=== PATIENT | male | born 1980 | race Caucasian/White ===

== ENCOUNTER 2017-04-30 07:03 | Emergency (ER) | payer OTHER ==
[~2017-04-30] VITALS: Ht 167.6 cm; Wt 77.1 kg
--- NOTE | 2017-04-30 07:24 | PHYS DOC ---
Adult General Chief Complaint Chief Complaint: ABDOMINAL PAIN HPI HPI Patient is a 36 year old with no significant medical history who presents today complaining of moderate left lower quadrant abdominal pain with nausea and vomiting that began today. Patient denies any fever. Denies any diarrhea. Denies any constipation. He states his last bowel movement was this morning and normal. Patient denies any hematuria urgency frequency dysuria. Review of Systems Review of Systems Constitutional: Denies fever or chills [] Eyes: Denies change in visual acuity, redness, or eye pain [] HENT: Denies nasal congestion or sore throat [] Respiratory: Denies cough or shortness of breath [] Cardiovascular: No additional information not addressed in HPI [] GI: Left lower quadrant abdominal pain with nausea and vomiting. Denies bloody stools or diarrhea [] : Denies dysuria or hematuria [] Musculoskeletal: Denies back pain or joint pain [] Integument: Denies rash or skin lesions [] Neurologic: Denies headache, focal weakness or sensory changes [] Endocrine: Denies polyuria or polydipsia [] All other systems were reviewed and found to be within normal limits, except as documented in this note. Current Medications Current Medications Current Medications Medications (Trade) Dose Ordered Sig/David Start Time Stop Time Status Last Admin Dose Admin Famotidine (Pepcid Vial) 20 mg 1X ONCE 04/30/17 07:30 04/30/17 07:39 DC 04/30/17 07:51 20 MG Ketorolac Tromethamine (Toradol) 30 mg 1X ONCE 04/30/17 07:30 04/30/17 07:39 DC 04/30/17 07:51 30 MG Ondansetron HCl (Zofran) 4 mg 1X ONCE 04/30/17 07:45 04/30/17 07:46 DC 04/30/17 07:50 4 MG Sodium Chloride 1,000 ml @ 1,000 mls/hr 1X ONCE 04/30/17 07:30 04/30/17 08:29 DC 04/30/17 07:50 1,000 MLS/HR Tamsulosin HCl (Flomax) 0.4 mg 1X ONCE 04/30/17 09:15 04/30/17 09:17 DC 04/30/17 09:41 0.4 MG Allergies Allergies Allergies Coded Allergies Type Severity Reaction Last Updated Verified No Known Drug Allergies 04/30/17 No Physical Exam Physical Exam Constitutional: Well developed, well nourished, no acute distress, non-toxic appearance. [] HENT: Normocephalic, atraumatic, bilateral external ears normal, oropharynx moist, no oral exudates, nose normal. [] Eyes: PERRLA, EOMI, conjunctiva normal, no discharge. [] Neck: Normal range of motion, no tenderness, supple, no stridor. [] Cardiovascular:Heart rate regular rhythm, no murmur [] Lungs & Thorax: Bilateral breath sounds clear to auscultation [] Abdomen: Bowel sounds normal, soft, no tenderness, no masses, no pulsatile masses. [] Skin: Warm, dry, no erythema, no rash. [] Back: No tenderness, no CVA tenderness. [] Extremities: No tenderness, no cyanosis, no clubbing, ROM intact, no edema. [] Neurologic: Alert and oriented X 3, normal motor function, normal sensory function, no focal deficits noted. [] Psychologic: Affect normal, judgement normal, mood normal. [] Current Patient Data Vital Signs Vital Signs Date Time Temp Pulse Resp B/P (MAP) Pulse Ox O2 Delivery O2 Flow Rate FiO2 04/30/17 07:04 98.0 69 16 133/89 (104) 100 Room Air 98.0 Lab Values Laboratory Tests Test 04/30/17 07:35 04/30/17 07:55 Urine Collection Type Void Urine Color Red Urine Clarity Turbid Urine pH 8.5 Urine Specific [place] 1.020 Urine Protein 100 mg/dL (NEG-TRACE) Urine Glucose (UA) Negative mg/dL (NEG) Urine Ketones (Stick) mg/dL (NEG) Urine Blood Large (NEG) Urine Nitrite (NEG) Urine Bilirubin (NEG) Urine Urobilinogen Dipstick 1.0 mg/dL (0.2 mg/dL) Urine Leukocyte Esterase (NEG) Urine RBC Tntc /HPF (0-2) Urine WBC 0 /HPF (0-4) Urine Bacteria 0 /HPF (0-FEW) Urine Opiates Screen Neg (NEG) Urine Methadone Screen Neg (NEG) Urine Barbiturates Neg (NEG) Urine Phencyclidine Screen Neg (NEG) Urine Amphetamine/Methamphetamine Neg (NEG) Urine Benzodiazepines Screen Neg (NEG) Urine Cocaine Screen Neg (NEG) Urine Cannabinoids Screen Neg (NEG) Urine Ethyl Alcohol Neg (NEG) White Blood Count 7.0 x10^3/uL (4.0-11.0) Red Blood Count 4.80 x10^6/uL (4.30-5.70) Hemoglobin 15.1 g/dL (13.0-17.5) Hematocrit 44.6 % (39.0-53.0) Mean Corpuscular Volume 93 fL (79-100) Mean Corpuscular Hemoglobin 32 pg (25-35) Mean Corpuscular Hemoglobin Concent 34 g/dL (31-37) Red Cell Distribution Width 12.8 % (11.5-14.5) Platelet Count 280 x10^3/uL (140-400) Neutrophils (%) (Auto) 75 % (31-73) H Lymphocytes (%) (Auto) 17 % (24-48) L Monocytes (%) (Auto) 7 % (0-9) Eosinophils (%) (Auto) 1 % (0-3) Basophils (%) (Auto) 1 % (0-3) Neutrophils # (Auto) 5.2 x10^3uL (1.8-7.7) Lymphocytes # (Auto) 1.2 x10^3/uL (1.0-4.8) Monocytes # (Auto) 0.5 x10^3/uL (0.0-1.1) Eosinophils # (Auto) 0.1 x10^3/uL (0.0-0.7) Basophils # (Auto) 0.0 x10^3/uL (0.0-0.2) Sodium Level 142 mmol/L (136-145) Potassium Level 3.7 mmol/L (3.5-5.1) Chloride Level 102 mmol/L (98-107) Carbon Dioxide Level 28 mmol/L (21-32) Anion Gap 12 (6-14) Blood Urea Nitrogen 13 mg/dL (8-26) Creatinine 1.1 mg/dL (0.7-1.3) Estimated GFR (Cockcroft-Gault) 74.9 BUN/Creatinine Ratio 12 (6-20) Glucose Level 137 mg/dL (70-99) H Calcium Level 8.5 mg/dL (8.5-10.1) Total Bilirubin 0.6 mg/dL (0.2-1.0) Aspartate Amino Transferase (AST) 23 U/L (15-37) Alanine Aminotransferase (ALT) 40 U/L (16-63) Alkaline Phosphatase 64 U/L (46-116) Total Protein 7.8 g/dL (6.4-8.2) Albumin 4.0 g/dL (3.4-5.0) Albumin/Globulin Ratio 1.1 (1.0-1.7) Lipase 1071 U/L (73-393) H Ethyl Alcohol Level < 10 mg/dL (0-10) Laboratory Tests 04/30/17 07:55 Laboratory Tests 04/30/17 07:55 EKG EKG [] Radiology/Procedures Radiology/Procedures []PROCEDURE: CT ABDOMEN PELVIS WO CONTRAST CT of the abdomen and pelvis without contrast, 04/30/2017: History: Lower abdominal pain Noncontrast scans were obtained utilizing the renal stone protocol. Two small intrarenal calculi are present on the right. The largest of these measures approximately 3 mm. The right renal collecting system and ureter are not dilated. No right ureteral calculus is seen. No intrarenal calculus is seen on the left. The left renal pelvis is mildly dilated as is the left ureter. There is a 5 x 3 mm radiopacity present along the posterior wall of the urinary bladder at the level of the left ureterovesical junction compatible with an obstructing calculus. Two other small left-sided lower pelvic calcifications are compatible with phleboliths. The urinary bladder is collapsed and poorly defined. There is a 9 mm low-density lesion in the right lobe of the unopacified liver, too small to definitively characterize. This is most likely a cyst or hemangioma. A couple of granulomatous calcifications are present in the liver and spleen. The gallbladder is unremarkable. No pancreatic abnormality is seen. The spleen is of normal size. The abdominal aorta is unremarkable. No abdominal or pelvic adenopathy is seen. The bowel loops are unremarkable. A portion of the appendix is visualized and it shows no abnormality. A small hiatal hernia is noted. No free air or free fluid is evident in the abdomen or pelvis. IMPRESSION: 1. Small obstructing calculus at the left ureterovesical junction. 2. Small nonobstructing right intrarenal calculi. 3. Small nonspecific low-density hepatic lesion. Course & Med Decision Making Course & Med Decision Making Pertinent Labs and Imaging studies reviewed. (See chart for details) This is a 36-year-old male presenting with nausea vomiting and left lower quadrant abdominal pain since this morning. CBC CMP with no acute findings, lipase 1071. Urine was noted for large amount of blood. Urine analysis is unable to bend for infection due to the color. CT of the abdomen and pelvic was noted Obstructing calculus at the left UVJ, Small nonobstructing right intrarenal calculi and Small nonspecific low-density hepatic lesion. Normal pancrease on CT. Patient was given Toradol and Zofran and Flomax with very good relief of his pain. I talked to patient about admission versus discharge. Patient prefers to be discharged. Instructed him to follow-up with a urologist at [facility] as soon as possible. Instructed him to return to the ED if symptoms worsen. Provided return precautions. Dragon Disclaimer Dragon Disclaimer This electronic medical record was generated, in whole or in part, using a voice recognition dictation system. Departure Departure Impression: Primary Impression: Kidney stone on left side Disposition: 01 HOME, SELF-CARE Condition: STABLE Patient Instructions: Kidney Stones, [id number] Additional Instructions: You were noted for a small kidney stone at the ureterovesical junction on the left side as well as small nonobstructing right intrarenal calculi. We put you on medications. Take them as prescribed. Contact [facility] urology group at [phone] and set up an appointment to follow-up with a urologist as soon as possible. Please return to the emergency room at any point symptoms worsen. Scripts Ondansetron (ZOFRAN ODT) 4 Mg Tab.rapdis 1 TAB SL Q8HRS, #15 TAB Prov: THOMAS WILLOUGHBY TELEPHONE BETTING CLERK 04/30/17 Hydrocodone/Apap 5-325 (NORCO 5-325 TABLET) 1 Each Tablet 1-2 TAB PO Q4-6HRS, #25 TAB Prov: THOMAS WILLOUGHBY TELEPHONE BETTING CLERK 04/30/17 Ciprofloxacin Hcl (CIPRO) 500 Mg Tablet 1 TAB PO BID, #14 TAB Prov: THOMAS WILLOUGHBY APRN 04/30/17 Tamsulosin Hcl (FLOMAX) 0.4 Mg Cap.er.24h 1 CAP PO DAILY, #7 CAP 0 Refills Prov: THOMAS WILLOUGHBY APRN 04/30/17 THOMAS WILLOUGHBY APRN Apr 30, 2017 07:24
[2017-04-30] MEDS ORDERED: IV NORMAL SALINE 1000ML BAG 1,000 ML IV ONE (07:30)
[2017-04-30] MEDS ORDERED: FAMOTIDINE 20 MG/2 ML VIAL IVP ONE (07:30)
[2017-04-30] MEDS ORDERED: KETOROLAC 30 MG/ML INJ. IV ONE (07:30)
[2017-04-30] MEDS ORDERED: ONDANSETRON PF 4 MG/2 ML VIAL. IV ONE (07:45)
[2017-04-30 07:47] VITALS: BP 138/78
[2017-04-30 07:50] LABS: GLUCOSE,URINE NEGATIVE (NEG); PH,URINE 8.5; PROTEIN,URINE 100 mg/dL (NEG-TRACE)
[2017-04-30 08:14] LABS: BASO % 1 % (0-3); EOS % 1 % (0-3); HEMATOCRIT 44.6 % (39.0-53.0); HEMOGLOBIN 15.1 g/dL (13.0-17.5); LYMPH # 1.2 x10^3/uL (1.0-4.8); LYMPH % 17 % (24-48); MEAN CORPUSCULAR HEMOGLOBIN 32 pg (25-35); MEAN CORPUSCULAR HGB CONC 34 g/dL (31-37); MEAN CORPUSCULAR VOLUME 93 fL (79-100); MONO % 7 % (0-9); NEUT % 75 % (31-73); PLATELET COUNT 280 x10^3/uL (140-400); RED CELL DISTRIBUTION WIDTH 12.8 % (11.5-14.5)
[2017-04-30 08:14] LABS: BACTERIA,URINE 0 /HPF (0-FEW); RBC,URINE TNTC /HPF (0-2); WBC,URINE 0 /HPF (0-4)
[2017-04-30 08:17] LABS: CALCIUM 8.5 mg/dL (8.5-10.1); CREATININE 1.1 mg/dL (0.7-1.3); GFR 74.9; POTASSIUM 3.7 mmol/L (3.5-5.1)
[2017-04-30 08:21] LABS: ALBUMIN/GLOBULIN RATIO 1.1 (1.0-1.7); TOTAL BILIRUBIN 0.6 mg/dL (0.2-1.0); TOTAL PROTEIN 7.8 g/dL (6.4-8.2)
[2017-04-30 08:25] LABS: BARBITURATES NEG (NEG); BENZODIAZEPINES NEG (NEG); CANNABINOIDS NEG (NEG); METHADONE NEG (NEG); OPIATES NEG (NEG); PHENCYCLIDINE NEG (NEG)
[2017-04-30 08:35] LABS: COCAINE NEG (NEG)
--- NOTE | 2017-04-30 08:39 | RAD ---
CT of the abdomen and pelvis without contrast, 04/30/2017: History: Lower abdominal pain Noncontrast scans were obtained utilizing the renal stone protocol. Two small intrarenal calculi are present on the right. The largest of these measures approximately 3 mm. The right renal collecting system and ureter are not dilated. No right ureteral calculus is seen. No intrarenal calculus is seen on the left. The left renal pelvis is mildly dilated as is the left ureter. There is a 5 x 3 mm radiopacity present along the posterior wall of the urinary bladder at the level of the left ureterovesical junction compatible with an obstructing calculus. Two other small left-sided lower pelvic calcifications are compatible with phleboliths. The urinary bladder is collapsed and poorly defined. There is a 9 mm low-density lesion in the right lobe of the unopacified liver, too small to definitively characterize. This is most likely a cyst or hemangioma. A couple of granulomatous calcifications are present in the liver and spleen. The gallbladder is unremarkable. No pancreatic abnormality is seen. The spleen is of normal size. The abdominal aorta is unremarkable. No abdominal or pelvic adenopathy is seen. The bowel loops are unremarkable. A portion of the appendix is visualized and it shows no abnormality. A small hiatal hernia is noted. No free air or free fluid is evident in the abdomen or pelvis. IMPRESSION: 1. Small obstructing calculus at the left ureterovesical junction. 2. Small nonobstructing right intrarenal calculi. 3. Small nonspecific low-density hepatic lesion. PQRS Compliance Statement: One or more of the following individualized dose reduction techniques were utilized for this examination: 1. Automated exposure control 2. Adjustment of the mA and/or kV according to patient size 3. Use of iterative reconstruction technique
[2017-04-30] MEDS ORDERED: TAMSULOSIN 0.4 MG CAP.ER.24H. PO ONE (09:15)
[2017-04-30] MEDS ORDERED: HYDR-971 PO (09:54)
[2017-04-30] MEDS ORDERED: CIPR500T94 PO (09:54)
[2017-04-30] MEDS ORDERED: ONDA4TAB10 SL (09:54)
[2017-04-30] MEDS ORDERED: TAMS0.4C97 PO (09:54)
== END 2017-04-30 10:00 | disposition home or self-care (01) ==
LOC: ER 07:03
DX: N20.2 Calculus of kidney with calculus of ureter (principal)
CPT/HCPCS: 36415; 74176; 80053; 80307; 81001; 83690; 85025; 96361; 96374; 96375; 99285; G0480; J1885; J2405; J7030; S0028; G0479